=== PATIENT | female | born 2000 | race Hispanic/Latino ===

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

== ENCOUNTER 2020-08-28 17:47 | Observation (INO) | payer OTHER ==
[2020-08-28 18:36] LABS: BASOPHILS % (AUTO) 0.8 % (0.0-5.0); EOSINOPHILS % (AUTO) 1.1 % (0.0-8.0); HEMATOCRIT 33.8 % (36-48); LYMPHOCYTES % (AUTO) 9.2 % (21.0-51.0); MEAN CORPUSCULAR HEMOGLOBIN 23.3 pg (27.0-33.0); MEAN CORPUSCULAR HGB CONC 31.1 g/dL (32.0-36.0); MEAN CORPUSCULAR VOLUME 75.1 fL (80-100); MONOCYTES % (AUTO) 13.3 % (3.0-13.0); NEUTROPHILS % (AUTO) 75.1 % (40.0-77.0); PLATELET COUNT (AUTO) 247 K/uL (130-400); RED CELL DISTRIBUTION WIDTH 16.2 % (11.0-15.5)
[2020-08-28 19:00] LABS: RAPID GROUP A STREP NEGATIVE (NEGATIVE)
[2020-08-28 19:18] LABS: CREATININE 0.7 mg/dL (0.5-1.5); POTASSIUM 3.5 mmol/L (3.5-5.1)
[2020-08-28 19:23] LABS: ALBUMIN 3.4 g/dL (3.5-5.0); BILIRUBIN,TOTAL 0.5 mg/dL (0.2-1.0); TOTAL PROTEIN, SERUM 8.9 g/dL (6.0-8.3)
[2020-08-28] MEDS ORDERED: IOHEXOL-350 50ML VIAL IV ONE (19:46)
[2020-08-28] MEDS ORDERED: DEXAMETHASONE SOD PHOSPHATE 10MG/ML 1ML VIAL ONE (20:02)
[2020-08-28] MEDS ORDERED: MORPHINE SULFATE 2 MG/ML 1ML SYG ONE (20:02)
[2020-08-28] MEDS ORDERED: ONDANSETRON HCL 4 MG/2 ML VIAL ONE (20:02)
[2020-08-28] MEDS ORDERED: ZOSYN 3.375GM+NS 50ML 50 ML IV ONE (21:12)
[2020-08-28] MEDS ORDERED: CLINDAMYCIN 900 MG/D5% WATER 50 ML IV ONE (21:43)
[2020-08-29] MEDS ORDERED: SODIUM CHLORIDE 0.9% 1000ML 1,000 ML IV ONE (02:29)
[2020-08-29] MEDS ORDERED: CLINDAMYCIN 600 MG/D5% WATER 50 ML IV ONE ×2 (07:46→14:54)
[2020-08-29] MEDS ORDERED: FAMOTIDINE/PF 20 MG/2 ML VIAL IV ONE (08:58)
[2020-08-29] MEDS ORDERED: KETOROLAC TROMETHAMINE 15MG/ML ONE (08:58)
== END 2020-08-29 16:27 | disposition home or self-care (01) ==
LOC: EDH 17:47 → EDHIP 21:45 → INTOOBSV 21:45
PROVIDERS: ADMIT Internal Medicine; ATTEND Internal Medicine
DX: J36 Peritonsillar abscess (principal); Z20.822 Contact with and (suspected) exposure to COVID-19
CPT/HCPCS: 36415; 42700; 70491; 80053; 83605; 85025; 87040 ×2; 87070; 87076; 87426; 87804 ×2; 87880; 99291; G0378 ×18; J1100; J1885; J2405; J2543; J3490 ×4; J7030; Q9967; U0003